=== PATIENT | male | born 1990 | race Two or more races ===

== ENCOUNTER 2020-07-02 08:44 | Emergency (ER) | payer OTHER ==
[~2020-07-02] VITALS: Ht 182.9 cm; Wt 93.0 kg
== END 2020-07-02 15:18 | disposition home or self-care (01) ==
LOC: ER 08:44
DX: K52.89 Other specified noninfective gastroenteritis and colitis (principal); E86.0 Dehydration; Z03.818 Encounter for observation for suspected exposure to other biological agents ruled out